=== PATIENT | female | born 1940 | race Caucasian/White ===

== ENCOUNTER → 2016-11-18 | Outpatient (CLI) | payer BC ==
[2016-11-18 17:13] LABS: THYROID STIMULATING HORMONE 3.53 uIu/ml (0.300-4.500)
== END | disposition home or self-care (01) ==
LOC: C.LAB 16:06
PROVIDERS: ATTEND Family Medicine
DX: E04.2 Nontoxic multinodular goiter (principal)

== ENCOUNTER → 2016-11-19 | Outpatient (CLI) | payer BC ==
--- NOTE | 2016-11-19 17:09 | MAMMOGRAPHY REPORT ---
BILATERAL DIGITAL SCREENING MAMMOGRAM WITH CAD: 11/19/2016 CLINICAL HISTORY: Routine screening. Patient has no complaints. TECHNIQUE: Bilateral CC and MLO views were obtained. Current study was also evaluated with a Compu ter Aided Detection (CAD) system. COMPARISON: Comparison is made to exams dated: 10/23/2015 mammogram, 10/19/2014 mammogram, 10/13/2013 mammogram, 07/15/2012 mammogram, 07/10/2011 mammogram - [facility], and 10/19/2008. BREAST COMPOSITION: There are scattered areas of fibroglandular density in both breasts. FINDINGS: Asymmetries in the left lateral posterior and subareolar breast appear very similar to axel or mammograms dating back to at least 10/19/2008, therefore likely benign. No new suspicious mass, architectural distortion or cluster of microcalcifications is seen. IMPRESSION: ACR BI-RADS CATEGORY 1: NEGATIVE There is no mammographic evidence of malignancy. A 1 year screening mammogram is recommended. The p atient will receive written notification of the results. Approximately 10% of breast cancers are not detected with mammography. A negative mammographic repor t should not delay biopsy if a clinically suggestive mass is present. Qing Lanier M.D. ay/:11/19/2016 16:03:35 Medical Social Consultant: Joanne Leyva, [facility] letter sent: Normal 1/2 BI-RADS Code: ACR BI-RADS Category 1: Negative
== END | disposition home or self-care (01) ==
LOC: C.MAMM 13:27
PROVIDERS: ATTEND Obstetrics & Gynecology
DX: Z12.31 Encounter for screening mammogram for malignant neoplasm of breast (principal)

== ENCOUNTER → 2017-07-17 | Outpatient (CLI) | payer BC ==
[2017-07-17 12:50] LABS: BASO % 0.5 %; BASO ABS # 0.02 K/uL (0-0.2); COMPLETE YES; EOS % 2.7 %; HEMATOCRIT 38.5 % (37-47); LYMPH % 14.7 %; LYMPH ABS # 0.59 K/uL (1.2-3.4); MEAN CORPUSCULAR HEMOGLOBIN 27.4 pg (25-34); MEAN CORPUSCULAR HGB CONC 32.2 g/dl (32-36); MEAN PLATELET VOLUME 10.1 fL (7.4-10.4); MONO % 9.5 %; NEUT % 72.6 %; PLATELET COUNT 225 K/uL (130-400); RED BLOOD COUNT 4.53 M/uL (4.2-5.4); WHITE BLOOD COUNT 4.01 K/uL (4.8-10.8)
[2017-07-17 13:12] LABS: ALT/SGPT 21 U/L (12-78); BLOOD UREA NITROGEN 12 mg/dl (7-18); BUN/CREATININE RATIO 13.2 (10-20); CALCIUM 8.7 mg/dl (8.5-10.1); CARBON DIOXIDE 27 mmol/L (21-32); CHLORIDE 102 mmol/L (98-107); CHOLESTEROL 198 mg/dl (0-200); GLUCOSE 87 mg/dl (70-99); MAGNESIUM 2.5 mg/dl (1.8-2.4); POTASSIUM 4.1 mmol/L (3.5-5.1); SODIUM 135 mmol/L (136-145)
[2017-07-17 13:21] LABS: ALB/GLOB RATIO 1.1 (0.9-2); ALKALINE PHOSPHATASE 91 U/L (45-117); AST/SGOT 18 U/L (15-37); CHOLESTEROL/HDL RATIO 3.7; HDL CHOLESTEROL 53 mg/dl; LDL CHOLESTEROL CALCULATED 124 mg/dl; TRIGLYCERIDES 105 mg/dl (0-150); VERY LOW DENSITY LIPOPROT CALC 21 mg/dl
== END | disposition home or self-care (01) ==
LOC: C.LAB 10:22
PROVIDERS: ATTEND Nurse Practitioner Family
DX: E04.2 Nontoxic multinodular goiter (principal); M81.0 Age-related osteoporosis without current pathological fracture

== ENCOUNTER → 2017-08-03 | Outpatient (CLI) | payer BC ==
--- NOTE | 2017-08-03 14:33 | DIAGNOSTIC IMAGING REPORT ---
THYROID ULTRASOUND CLINICAL HISTORY: Nontoxic multinodular goiter. COMPARISON STUDY: Thyroid ultrasound June 29, 2015. TECHNIQUE: Sonography of the thyroid gland was performed. FINDINGS: The right lobe measures 4 x 1.2 x 1.3 cm and the left lobe measures 4.2 x 1.1 x 1.1 cm. The gland is slightly heterogeneous. The size of the gland is normal. Isthmus measures 0.2 cm in thickness. A few tiny cystic nodules measure up to 3 mm. These are similar to exam of June 29, 2015. These are suggestive of colloid cysts. IMPRESSION: No change in a few tiny cystic thyroid lesions suggestive of small colloid cysts. No suspicious thyroid nodules by sonography. Electronically signed by: Lonnie Puga M.D. 08/03/2017 2:31 PM Dictated Date/Time: 08/03/2017 2:23 PM
== END | disposition home or self-care (01) ==
LOC: C.ULTR 13:23
PROVIDERS: ATTEND Nurse Practitioner Family
DX: E04.2 Nontoxic multinodular goiter (principal)

== ENCOUNTER → 2017-12-10 | Outpatient (CLI) | payer BC ==
--- NOTE | 2017-12-10 15:32 | MAMMOGRAPHY REPORT ---
BILATERAL DIGITAL SCREENING MAMMOGRAM TOMOSYNTHESIS WITH CAD: 12/10/2017 CLINICAL HISTORY: Routine screening. Patient has no complaints. TECHNIQUE: Breast tomosynthesis in addition to standard 2D mammography was performed. Current study was also evaluated with a Computer Aided Detection (CAD) system. COMPARISON: Comparison is made to exams dated: 11/19/2016 mammogram, 10/23/2015 mammogram, 10/19/2014 m ammogram, 10/13/2013 mammogram, 07/15/2012 mammogram, and 07/10/2011 mammogram - [facility]. BREAST COMPOSITION: There are scattered areas of fibroglandular density in both breasts. FINDINGS: No suspicious masses, calcifications, or areas of architectural distortion are noted in ei ther breast. There has been no significant interval change compared to prior exams. A linear scar ma rker denotes a scar on the right superior breast. Left lateral breast asymmetry is stable compared t o multiple prior exams including the 2014 exam. IMPRESSION: ACR BI-RADS CATEGORY 2: BENIGN There is no mammographic evidence of malignancy. A 1 year screening mammogram is recommended. The pa tient will receive written notification of the results. Approximately 10% of breast cancers are not detected with mammography. A negative mammographic report should not delay biopsy if a clinically suggestive mass is present. Elana No M.D. /:12/10/2017 14:28:26 Systems Test Engineer: Laurie LEWIS([employer])([facility]), [facility] letter sent: Normal 1/2 BI-RADS Code: ACR BI-RADS Category 2: Benign
== END | disposition home or self-care (01) ==
LOC: C.MAMM 12:43
PROVIDERS: ATTEND Obstetrics & Gynecology
DX: Z12.31 Encounter for screening mammogram for malignant neoplasm of breast (principal)